=== PATIENT | female | born 1960 | race Caucasian/White ===

== ENCOUNTER → 2018-08-15 | Outpatient (CLI) | payer OTHER ==
[~2018-08-15] MED LIST: CYCL-259 PO; DIAZ5TAB PO; FLUO40CA2 PO; HYDR-3307 PO; LISI-167 PO; LISI1TAB5 PO; METH4TAB2 PO; OMEP-110 PO; OXYC-307 PO; PROP20TA PO; SIMV10TA3 PO
== END | disposition home or self-care (01) ==
LOC: CFH 11:21
PROVIDERS: ATTEND Nurse Practitioner
DX: R06.02 Shortness of breath (principal)
CPT/HCPCS: 71046